=== PATIENT | male | born 1965 | race Caucasian/White ===

== ENCOUNTER 2016-09-30 09:51 | Emergency (ER) | payer OTHER ==
[~2016-09-30] VITALS: Ht 185.4 cm; Wt 74.8 kg
[2016-09-30 09:51] VITALS: BP 121/74
[2016-09-30] MEDS ORDERED: IBUPROFEN 600 MG TABLET PO ONE ×2 (10:05→10:30)
== END 2016-09-30 10:11 ==
LOC: ER 09:53
DX: S09.90XA Unspecified injury of head, initial encounter (principal); S19.9XXA Unspecified injury of neck, initial encounter; F17.200 Nicotine dependence, unspecified, uncomplicated; W22.8XXA Striking against or struck by other objects, initial encounter; Y93.89 Activity, other specified; Y92.89 Other specified places as the place of occurrence of the external cause; Y99.8 Other external cause status
CPT/HCPCS: 99283; A4606; Z7610

== ENCOUNTER 2017-06-10 00:04 | Emergency (ER) | payer OTHER ==
[~2017-06-10] VITALS: Ht 182.9 cm; Wt 72.6 kg
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
--- NOTE | 2017-06-10 00:17 | NUR ---
md gauilar at bed side for eval
--- NOTE | 2017-06-10 00:22 | NUR ---
emt at bed side for wound care
--- NOTE | 2017-06-10 00:25 | NUR ---
patient transported to ct via gurney by radiology team
[2017-06-10] MEDS ORDERED: LORAZEPAM INJ 2 MG/ML VIAL IM ONE (01:00)
[2017-06-10] MEDS ORDERED: AMOX/CLAVULANATE 875 MG TABLET PO ONE (01:00)
[2017-06-10] MEDS ORDERED: AMOX/CLAVULANATE 875 MG TABLET ONE (01:04)
[2017-06-10 01:14] VITALS: BP 120/78
== END 2017-06-10 01:15 ==
LOC: ER 00:06
DX: S02.2XXA Fracture of nasal bones, initial encounter for closed fracture (principal); S01.21XA Laceration without foreign body of nose, initial encounter; K04.7 Periapical abscess without sinus; F17.200 Nicotine dependence, unspecified, uncomplicated; Y04.8XXA Assault by other bodily force, initial encounter; Y93.89 Activity, other specified; Y92.89 Other specified places as the place of occurrence of the external cause; Y99.8 Other external cause status
CPT/HCPCS: 70486-TC; A4606; A6403; Z7610